=== PATIENT | male | born 1965 | race Caucasian/White ===

== ENCOUNTER 2023-04-06 17:05 | Inpatient (IN) | payer MEDICAID ==
[~2023-04-06] VITALS: Ht 167.6 cm; Wt 59.0 kg
[2023-04-06 21:20] LABS: BASOPHILS % 0.3 % (0.0-2.0); EOSINOPHILS % 2.6 % (0.0-5.0); HEMATOCRIT. 42.8 % (42.0-52.0); HEMOGLOBIN. 14.2 g/dL (14.0-18.0); LYMPHOCYTES % 40.1 % (20.0-50.0); MEAN CORPUSCULAR HEMOGLOBIN 30.3 pg (28.0-32.0); MEAN CORPUSCULAR VOLUME 91.1 fL (80.0-94.0); RED BLOOD CELL COUNT 4.69 mill/uL (4.7-6.1); RED CELL DISTRIBUTION WIDTH 15.3 % (11.6-14.6)
[2023-04-06] MEDS ORDERED: PIPERACILLIN/TAZ 3.375G PREMIX 50 ML IV NR (21:23)
[2023-04-06 21:26] LABS: CHLORIDE 107 mEq/L (98-107)
[2023-04-06] MEDS ORDERED: SODIUM CHLORIDE 0.9% 1,000 ML IV ONE (21:30)
[2023-04-06] MEDS ORDERED: PIPERACILLIN/TAZOBACTAM 3.375GM/50ML PREMIX IV ONE (21:30)
[2023-04-06] MEDS ORDERED: VANCOMYCIN 1G PREMIX 200 ML IV SCH (21:30)
[2023-04-06 22:21] LABS: MEAN PLATELET VOLUME 8.7 fl (7.4-10.4); PLATELET 212 x1000/uL (130-400)
[2023-04-07] VITALS (7 sets, daily range): BP systolic 102–151; BP diastolic 67–90; PULSE 60–70; RESP 18–67; TEMP 96.1–98.1
[2023-04-07] MEDS ORDERED: ACETAMINOPHEN 325MG TABLET PO PRN ×2 (01:00)
[2023-04-07] MEDS ORDERED: DEXTROSE 50% WATER 50ML SYRINGE IV PRN (01:00)
[2023-04-07] MEDS: PIPERACILLIN/TAZOBACTAM 3.375 G in DEXTROSE 5% WATER 50 ML IV SCH ×3 (05:23→21:07)
[2023-04-07] MEDS: INSULIN LISPRO 100 UNITS/ML SUBCUT SCH ×4 (05:41→22:49)
[2023-04-07] MEDS: BLOOD SUGAR DIAGNOSTIC STRIP TEST SCH ×4 (05:41→21:00)
[2023-04-07] MEDS: VANCOMYCIN 750MG PMX (XELLIA) 150 ML IV SCH ×3 (06:06→22:50)
[2023-04-07] MEDS: LOSARTAN POTASSIUM 50 MG TABLET PO SCH (09:00)
[2023-04-07] MEDS: ENOXAPARIN 40MG/0.4ML SYR SUBCUT SCH (09:00)
[2023-04-07 10:12] LABS: BASOPHILS % 0.2 % (0.0-2.0); EOSINOPHILS % 1.8 % (0.0-5.0); HEMATOCRIT. 39.3 % (42.0-52.0); HEMOGLOBIN. 13.2 g/dL (14.0-18.0); LYMPHOCYTES % 20.8 % (20.0-50.0); MEAN CORPUSCULAR HEMOGLOBIN 30.5 pg (28.0-32.0); MEAN CORPUSCULAR VOLUME 90.7 fL (80.0-94.0); MEAN PLATELET VOLUME 8.8 fl (7.4-10.4); MONOCYTES % 5.4 % (2.0-8.0); NEUTROPHILS % 71.8 % (40.0-76.0); PLATELET 185 x1000/uL (130-400); RED BLOOD CELL COUNT 4.33 mill/uL (4.7-6.1)
[2023-04-07 14:32] LABS: CHLORIDE 106 mEq/L (98-107); HDL CHOLESTEROL 42 mg/dL (40-59); LDL CHOLESTEROL 56 mg/dL (5-100)
[2023-04-08] VITALS: BP 104/67; PULSE 70; RESP 18; TEMP 97.6
[2023-04-08] MEDS ORDERED: HYDROCODONE/ACETAMINOPHEN 10/325MG TABLET PO PRN (02:15)
[2023-04-08 04:00] VITALS: BP 106/66; PULSE 68; RESP 20; TEMP 96.3
[2023-04-08] MEDS: PIPERACILLIN/TAZOBACTAM 3.375 G in DEXTROSE 5% WATER 50 ML IV SCH ×3 (05:47→21:21)
[2023-04-08] MEDS: BLOOD SUGAR DIAGNOSTIC STRIP TEST SCH ×4 (06:36→21:21)
[2023-04-08] MEDS: INSULIN LISPRO 100 UNITS/ML SUBCUT SCH ×4 (06:40→21:37)
[2023-04-08] MEDS: VANCOMYCIN 750MG PMX (XELLIA) 150 ML IV SCH (07:55)
[2023-04-08 08:00] VITALS: BP 105/70; PULSE 58; RESP 18; TEMP 96.4
[2023-04-08] MEDS: LOSARTAN POTASSIUM 50 MG TABLET PO SCH (09:00)
[2023-04-08] MEDS: ENOXAPARIN 40MG/0.4ML SYR SUBCUT SCH (09:16)
[2023-04-08] MEDS ORDERED: LIDOCAINE HCL 1% 10 MG/ML 10ML VIAL ONE (09:44)
[2023-04-08 12:00] VITALS: BP 128/84; PULSE 60; RESP 18; TEMP 97.5
[2023-04-08] MEDS: VANCOMYCIN 500MG PREMIX 100 ML IV SCH ×2 (13:25→21:37)
[2023-04-08 16:00] VITALS: BP 112/72; PULSE 70; RESP 18; TEMP 96.6
[2023-04-08] MEDS ORDERED: NALOXONE HCL 0.4MG/ML VIAL IV PRN (17:30)
[2023-04-09] VITALS (7 sets, daily range): BP systolic 93–121; BP diastolic 57–73; PULSE 59–78; RESP 17–20; TEMP 96.3–98.9
[2023-04-09] MEDS: VANCOMYCIN 500MG PREMIX 100 ML IV SCH ×3 (05:33→21:14)
[2023-04-09] MEDS: PIPERACILLIN/TAZOBACTAM 3.375 G in DEXTROSE 5% WATER 50 ML IV SCH ×3 (05:33→22:48)
[2023-04-09] MEDS: BLOOD SUGAR DIAGNOSTIC STRIP TEST SCH ×4 (06:52→21:11)
[2023-04-09] MEDS: ENOXAPARIN 40MG/0.4ML SYR SUBCUT SCH (08:12)
[2023-04-09] MEDS: INSULIN LISPRO 100 UNITS/ML SUBCUT SCH ×4 (08:14→21:00)
[2023-04-09] MEDS: LOSARTAN POTASSIUM 50 MG TABLET PO SCH (08:15)
[2023-04-10 04:00] VITALS: BP 91/56; PULSE 79; RESP 18; TEMP 97.5
[2023-04-10] MEDS: VANCOMYCIN 500MG PREMIX 100 ML IV SCH (05:05)
[2023-04-10] MEDS: PIPERACILLIN/TAZOBACTAM 3.375 G in DEXTROSE 5% WATER 50 ML IV SCH (06:06)
[2023-04-10] MEDS: BLOOD SUGAR DIAGNOSTIC STRIP TEST SCH ×2 (07:20→12:13)
[2023-04-10 08:00] VITALS: BP_SYST 105; BP_SYST 157; BP_DIAS 67; BP_DIAS 68; PULSE 61; PULSE 63; RESP 19; TEMP 97.5
[2023-04-10 08:04] LABS: CHLORIDE 108 mEq/L (98-107)
[2023-04-10] MEDS: ENOXAPARIN 40MG/0.4ML SYR SUBCUT SCH (08:41)
[2023-04-10] MEDS: LOSARTAN POTASSIUM 50 MG TABLET PO SCH (08:41)
[2023-04-10] MEDS: INSULIN LISPRO 100 UNITS/ML SUBCUT SCH ×2 (10:57→12:26)
[2023-04-10 12:00] VITALS: BP_SYST 178; BP_SYST 87; BP_DIAS 55; BP_DIAS 76; PULSE 71; PULSE 72; RESP 19; TEMP 96.7; TEMP 97.7
[2023-04-10 13:34] VITALS: BP 105/67; PULSE 63; TEMP 97.5; O2SAT 97
[2023-04-10] MEDS ORDERED: DAPT500V17 IV (14:55)
[2023-04-10] MEDS ORDERED: CEFE2FRO IV (14:56)
[2023-04-10 16:00] VITALS: BP 102/62; PULSE 67; RESP 19; TEMP 96.6
== END 2023-04-10 13:25 | disposition home health service (06) | DRG 344 ==
LOC: ER 17:05 → 6EST 23:48
PROVIDERS: ADMIT Internal Medicine; ATTEND Internal Medicine
PROC: 02HV33Z Insertion of Infusion Device into Superior Vena Cava, Percutaneous Approach (ICD-10-PCS; principal; 2023-04-08)
PROC: B548ZZA Ultrasonography of Superior Vena Cava, Guidance (ICD-10-PCS; 2023-04-08)
PROC: B5181ZA Fluoroscopy of Superior Vena Cava using Low Osmolar Contrast, Guidance (ICD-10-PCS; 2023-04-08)
DX: E11.69 Type 2 diabetes mellitus with other specified complication (principal); M86.8X7 Other osteomyelitis, ankle and foot; E11.621 Type 2 diabetes mellitus with foot ulcer; L03.031 Cellulitis of right toe; L97.519 Non-pressure chronic ulcer of other part of right foot with unspecified severity; Z79.4 Long term (current) use of insulin; I10 Essential (primary) hypertension
CPT/HCPCS: 36415; 36573; 73630; 73660; 73718; 80048; 80053; 80061; 80202; 82962; 83036; 83605; 85025; 99285; C1725; J1650; J1815; J2543; J3370; J3490; J7030; J7060